=== PATIENT | male | born 1970 | race African-American/Black ===

== ENCOUNTER 2016-07-04 21:00 | Emergency (ER) | payer OTHER ==
[~2016-07-04] VITALS: Ht 177.8 cm; Wt 99.8 kg
[~2016-07-04 21:00] MED LIST: CARAFATE 11 GM/10 M1 PO; PROTONIX40 M1 PO
[2016-07-04] MEDS ORDERED: NOHOMEMEDICATIONS (21:10)
[2016-07-04 21:25] LABS: ABSOLUTE NEUTROPHILS 11.6 thou/uL (1.4-8.2); BASOPHILS 0.3 % (0.0-2.0); HEMOGLOBIN 15.9 gm/dL (14.0-18.0); MCH 29.8 pg (26.0-34.0); MCHC 32.4 g/dL (28.0-37.0); MCV 91.9 fL (80.0-100.0); MONOCYTES 6.9 % (1.0-8.0); PLATELET COUNT 234 thou/uL (150-400); POLYS 82.8 % (36.0-66.0); RBC 5.33 mil/uL (4.50-6.00); RDW 15.3 % (10.5-14.5)
[2016-07-04 21:29] LABS: MANUAL DIFF NO
[2016-07-04 21:38] LABS: CALCIUM 9.4 mg/dL (8.5-10.1); CREATININE 1.4 mg/dL (0.6-1.3)
[2016-07-04 21:52] LABS: ALBUMIN 4.2 g/dL (3.4-5.0); TOTAL BILIRUBIN 0.8 mg/dL (<0.1-1.0); TOTAL PROTEIN 8.4 g/dL (6.4-8.2)
[2016-07-04] MEDS ORDERED: ZOFRAN4 MG PO (23:55)
[2016-07-04] MEDS ORDERED: CARAFATE 1 GM TA1 G1 PO (23:55)
[2016-07-04] MEDS ORDERED: NORCO 5-325 TA1 EACH PO (23:55)
[2016-07-04] MEDS ORDERED: ZANTAC 150MG T150 MG PO (23:55)
== END 2016-07-05 00:25 | disposition home or self-care (01) ==
LOC: ER 21:00
PROVIDERS: Emergency Medicine
DX: R10.13 Epigastric pain (principal); R11.2 Nausea with vomiting, unspecified; K27.9 Peptic ulcer, site unspecified, unspecified as acute or chronic, without hemorrhage or perforation; F17.210 Nicotine dependence, cigarettes, uncomplicated

== ENCOUNTER 2016-07-28 22:06 | Observation (INO) | payer OTHER ==
[~2016-07-28] VITALS: Ht 177.8 cm; Wt 104.3 kg
--- NOTE | ~2016-07-28 | EKG ---
[address] [place] [address] ELECTROCARDIOGRAM REPORT Name: ANTONIA SNIDER Room #: 534-P [facility] M.R.#: [id number] Admission: 07/29/16 Attend Phys: Rekha Posey MD Discharge: Date of : 68 Report #: [id number] THIS REPORT FOR: //name// [facility] ED Test Date: 2016-07-28 Test Time: 22:37:33 Pat Name: ANTONIA SNIDER Department: Room: 534 Gender: M Diagrammer: [id number] : 1970 Requested By: Johnathan Dowling Order Number: [id number] MD: Bucky Wan Measurements Intervals [place] Rate: 89 P: 40 MT: 139 QRS: 5 QRSD: 98 T: 14 QT: 366 QTc: 446 Interpretive Statements Sinus rhythm No significant abnormality No previous ECG available for comparison Electronically Signed On 07-29-2016 9:00:38 CDT by Bucky Wan [email or web address] <ELECTRONICALLY SIGNED> By: Bucky Wan MD, [facility] 07/29/16 0900 [id number] Bucky Wan MD, FACC /EPI
--- NOTE | ~2016-07-28 | HC ---
[facility] [place] [address] CONSULTATION Name: ANTONIA SNIDER Room #: 534-P [facility] Safia Pradhan#: [id number] Admission: 07/29/16 Attend Phys: Remington Elizabeth DO Discharge: Date of : 68 Report #: [id number] THIS REPORT FOR: //name// CC: [facility] physician/PCP Inpatient chart Remington Posey MD The Patient DATE OF SERVICE: 07/29/2016 ATTENDING PHYSICIAN: Rekha Posey M.D. He does not have any family physician. REASON FOR CONSULTATION: We are asked to see the patient regarding bilateral lower abdominal pain, nausea, vomiting and dry heaves. HISTORY OF PRESENT ILLNESS: The patient presented with the above symptoms for the second time within a 2-month period. He had been found to have a gastric ulcer in the antrum on previous EGD in June of this year by Dr. Santos. He was Helicobacter pylori negative and was supposed to be taking either proton pump inhibitors or perhaps ranitidine after he was discharged for treatment of this ulcer. It is unclear if he continued to take this medication or not. He was also supposed to be on Carafate slurries. PAST MEDICAL HISTORY: Significant for the gastric ulcer. He also had an ulcer in 2016. He has a history of kidney stones, pancreatitis and had a right pneumothorax. PAST SURGICAL HISTORY: None. ALLERGIES: No known drug allergies. MEDICATIONS: Prior to this admission as listed in his chart. He states that he had no home medications, but he told me that he had been taking ranitidine and some other type of medication for pain. SOCIAL HISTORY: He does smoke. He rarely drinks any alcohol. He does smoke marihuana. FAMILY HISTORY: Negative for colon polyps and colon cancer, Crohn's disease and ulcerative colitis. REVIEW OF SYSTEMS: He denies any dysphagia, odynophagia, gastroesophageal reflux and hiatal hernia. He has had peptic ulcer disease. He has had nausea, [facility] [address] [place] [address] CONSULTATION Name: ANTONIA SNIDER Room #: 534-P [facility] M.R.#: [id number] Admission: 07/29/16 Attend Phys: Remington Elizabeth DO Discharge: Date of : 68 Report #: [id number] vomiting and dry heaves. He denies any change in bowel habits such as increasing constipation or diarrhea. He denies any hematemesis, hematochezia or melena. He has had bilateral lower abdominal crampy pain; that is his main complaint. He has had a history of pancreatitis. Denies any history of jaundice or hepatitis. PHYSICAL EXAMINATION: GENERAL: Reveals a well-developed and well-nourished 46-year-old -Turkmen male, in njcy-li-rmbplobn distress because of nausea and abdominal discomfort in his lower quadrants. He is awake, alert and oriented x 4, cooperative and pleasant to converse with. I helped him to get up into the chair because he was very comfortable lying in bed. HEENT: He is normocephalic, atraumatic and anicteric. HEART: Rate and rhythm are regular with a normal S1 and S2. LUNGS: Clear bilaterally. ABDOMEN: Soft. Bowel sounds are present but decreased in all 4 quadrants. There is no palpable organomegaly or mass. There is tenderness in the lower quadrants bilaterally, but no rebound or guarding. The patient denies any epigastric tenderness. EXTREMITIES: Warm and dry. No peripheral cyanosis, clubbing or edema. NEUROLOGIC: He appears grossly intact without lateralizing signs, but I did not test him extensively neurologically. DIAGNOSTIC DATA: Three acute abdomen films showed nonspecific abdominal findings. There was no free air. CT of the abdomen and pelvis was also obtained yesterday. It showed a probable 6-mm cyst in the anterior left lobe of the liver. There were also some small cysts in the anterior portion of the left kidney and one small cyst in the lower pole of the right kidney. Kidneys and ureters appeared normal. Otherwise, no hydronephrosis or solid mass seen. Adrenals were normal. Pancreas normal. Gallbladder and biliary system normal. Spleen normal. Lung base and heart were normal as far as we could see on the CAT scan. Stomach was decompressed. There was some mild thickening of the distal stomach; this is where he had a previous gastric ulcer about a month to 6 weeks ago. Duodenum appeared normal. Small bowel is normal. Terminal ileum and appendix were normal. Gas and stool were present throughout the colon without evidence of acute inflammation. No bowel obstruction, ileus or free air. Urinary bladder was normal. Reproductive organs were normal. Osseous structures were normal. SIGNIFICANT LABORATORY DATA: BMP shows a carbon dioxide level of 19. Liver enzymes were all normal or low. Lactate level on 07/28/2016 was 2.8 and on 07/29/2016, it was 1.3. WBCs were 15.4, hemoglobin 15.6 and hematocrit 47.4. Indices were normal. RDW was 15.5 and platelets 192,000. Urinalysis showed a pH of 8.5 with 1+ ketones. IMPRESSION AND PLAN: [facility] [address] [place] [address] CONSULTATION Name: ANTONIA SNIDER Room #: 534-P ADM Safia Pradhan#: [id number] Admission: 07/29/16 Attend Phys: Remington Elizabeth DO Discharge: Date of : 68 Report #: [id number] 1. Bilateral lower abdominal pain of uncertain etiology. It is nonradiating. The patient states he has been chilling and has dry heaves, but he has not had a fevers. I would recommend continuing his IV fluids for hydration, the antiemetics and analgesics, and we will start him on clear liquids p.o. 2. There is a history of gastric ulcer on 06/15/2016 and also peptic ulcer disease in 2016. He apparently was taking ranitidine at home, but I do not think that he was taking the Carafate as was previously prescribed. I would start him on Protonix 40 mg IV every 12 hours. 3. We will start Levsin sublingual 0.125 mg, 1 or 2 tabs sublingually every 6 hours p.r.n. for abdominal cramps. 4. The patient is advised to have a colonoscopy when he could tolerate the prep. It could be done outpatient if his abdominal pain clears. 5. History of pancreatitis. 6. Urolithiasis by history. 7. Recheck labs in the morning. His white count is elevated at 14,000; we will recheck a CBC in the morning as well. Thank you very much once again for allowing me to participate in his care. By: 0751 Rolanda Metz, DO /nt
[~2016-07-28 22:06] MED LIST changes: +CARAFATE 1 GM TA1 G1 PO; +NOHOMEMEDICATIONS; +NORCO 5-325 TA1 EACH PO; +ZANTAC 150MG T150 MG PO; +ZOFRAN4 MG PO
[2016-07-28 22:07] VITALS: BP 153/81
[2016-07-28 23:02] LABS: ABSOLUTE NEUTROPHILS 10.5 thou/uL (1.4-8.2); BASOPHILS 0.2 % (0.0-2.0); EOSINOPHILS 2.6 % (0.0-3.0); HEMATOCRIT 47.4 % (42.0-52.0); HEMOGLOBIN 15.6 gm/dL (14.0-18.0); LYMPHOCYTES 21.9 % (24.0-44.0); MCH 30.7 pg (26.0-34.0); MCHC 32.8 g/dL (28.0-37.0); MCV 93.5 fL (80.0-100.0); MONOCYTES 7.1 % (1.0-8.0); PLATELET COUNT 192 thou/uL (150-400); POLYS 68.2 % (36.0-66.0); RBC 5.07 mil/uL (4.50-6.00); RDW 15.5 % (10.5-14.5); WBC 15.4 thou/uL (4.0-11.0)
[2016-07-28 23:07] LABS: MANUAL DIFF NO
[2016-07-28 23:17] LABS: ANION GAP 13 mmol/L (7-16); BUN 9 mg/dL (7-18); CALCIUM 8.9 mg/dL (8.5-10.1); CHLORIDE 107 mmol/L (98-107); CO2 19 mmol/L (21-32); CREATININE 0.7 mg/dL (0.7-1.3); GLUCOSE 105 mg/dL (74-106); SODIUM 139 mmol/L (136-145)
[2016-07-28 23:24] LABS: ALBUMIN 3.8 g/dL (3.4-5.0); ALKALINE PHOSPHATASE 68 U/L (46-116); SGOT 21 U/L (15-37); SGPT 22 U/L (30-65); TOTAL BILIRUBIN 0.7 mg/dL (<0.1-1.0); TROPONIN-I < 0.04 ng/mL (<0.04-0.07)
[2016-07-29 01:57] LABS: URINE BILIRUBIN NEGATIVE (Negative); URINE BLOOD NEGATIVE (Negative); URINE COLOR YELLOW; URINE GLUCOSE-RANDOM* NEGATIVE (Negative); URINE KETONES 1+ (Negative); URINE LEUKOCYTES-REFLEX NEGATIVE (Negative); URINE PROTEIN (DIPSTICK) NEGATIVE (Negative); URINE UROBILINOGEN 0.2 E.U./dl (0.2-1.0)
[2016-07-29 02:03] LABS: SSA (PROTEIN CONFIRMATORY) NEGATIVE (Negative)
[2016-07-29] MEDS ORDERED: CARAFATE 1 GM TA1 G1 PO (02:05)
[2016-07-29] MEDS ORDERED: ONDANSETRON HCL4 M2 PO (02:05)
[2016-07-29] MEDS ORDERED: PROTONIX 20 MG20 M1 PO (02:05)
[2016-07-29 02:56] VITALS: BP 130/87
[2016-07-29 03:11] VITALS: BP 123/75
[2016-07-29 07:19] VITALS: BP 138/68
[2016-07-29 16:09] VITALS: BP 143/83
[2016-07-29 20:00] VITALS: BP 108/69
[2016-07-30 04:00] VITALS: BP 104/64
[2016-07-30 07:49] VITALS: BP 106/79
== END 2016-07-30 11:24 | disposition left against medical advice (07) ==
LOC: ER 22:06 → EROBS 07-29 02:20 → 5S 07-29 02:20 → EROBS 07-29 02:20 → 5S 07-29 02:58
PROVIDERS: Emergency Medicine
DX: R10.9 Unspecified abdominal pain (principal); D72.829 Elevated white blood cell count, unspecified; N28.1 Cyst of kidney, acquired; K25.9 Gastric ulcer, unspecified as acute or chronic, without hemorrhage or perforation; F17.210 Nicotine dependence, cigarettes, uncomplicated

== ENCOUNTER 2018-06-08 19:31 | Emergency (ER) | payer OTHER ==
[~2018-06-08] VITALS: Ht 177.8 cm; Wt 99.8 kg
[~2018-06-08 19:31] MED LIST changes: +ONDANSETRON HCL4 M2 PO; +PROTONIX 20 MG20 M1 PO
[2018-06-08 20:08] LABS: AMP/METHAMP Negative (Negative); BARBITURATES Negative (Negative); BENZODIAZEPINES Negative (Negative); COCAINE Negative (Negative); METHADONE Negative (Negative); OPIATES Negative (Negative); PCP Negative (Negative)
[2018-06-08 20:23] LABS: ABSOLUTE NEUTROPHILS 11.2 thou/uL (1.4-8.2); BASOPHILS 0.3 % (0.0-2.0); HEMATOCRIT 46.8 % (42.0-52.0); HEMOGLOBIN 15.9 gm/dL (14.0-18.0); LYMPHOCYTES 13.7 % (24.0-44.0); MCH 31.3 pg (26.0-34.0); MCHC 34.1 g/dL (28.0-37.0); MCV 91.9 fL (80.0-100.0); MONOCYTES 11.8 % (1.0-8.0); PLATELET COUNT 197 thou/uL (150-400); POLYS 74.2 % (36.0-66.0); RBC 5.09 mil/uL (4.50-6.00); RDW 14.7 % (10.5-14.5); WBC 15.1 thou/uL (4.0-11.0)
[2018-06-08 20:35] LABS: CALCIUM 9.7 mg/dL (8.5-10.1); CREATININE 1.3 mg/dL (0.7-1.3); POTASSIUM 3.3 mmol/L (3.5-5.1)
[2018-06-08] MEDS ORDERED: ZOFRAN ODT4 MG PO (20:52)
[2018-06-08 21:35] VITALS: BP 106/64
--- NOTE | 2018-06-09 11:59 | EKG ---
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: [place] : 1970 Requested By: Charles Ramos Order Number: [id number] MD: Eriberto Celis Measurements Intervals [place] Rate: 65 P: 37 [place]: 133 QRS: 28 QRSD: 104 T: 34 QT: 434 QTc: 452 Interpretive Statements Sinus rhythm Compared to ECG 07/28/2016 22:37:33 No significant changes Electronically Signed On 06-09-2018 11:59:36 VISUAL PRESENTATION MANAGER by Eriberto Celis [email or web address] ��������������������������������������������� <ELECTRONICALLY SIGNED> ���������������������������������������� By: Eriberto Celis MD ��������������������������������������������� 06/09/18 1159 [id number] Eriberto Celis MD /EPI
== END 2018-06-08 21:34 | disposition home or self-care (01) ==
LOC: ER 19:31
PROVIDERS: Emergency Medicine
DX: F12.188 Cannabis abuse with other cannabis-induced disorder (principal); F17.210 Nicotine dependence, cigarettes, uncomplicated